=== PATIENT | female | born 1995 | race Caucasian/White ===

== ENCOUNTER 2017-07-27 13:16 | Observation (INO) | payer OTHER ==
[2017-07-27] MEDS ORDERED: ROCURONIUM BROMIDE 50 MG/5 ML VIAL As Ordered (14:46)
[2017-07-27] MEDS ORDERED: fentaNYL 250 MCG/5 ML INJECTION (J3010) As Ordered (14:46)
[2017-07-27] MEDS ORDERED: LIDOCAINE 2% INJ 100 MG/5 ML SDV (FOR ANES.) As Ordered (14:46)
[2017-07-27] MEDS ORDERED: PROPOFOL 200 MG/20 ML VIAL As Ordered (14:46)
[2017-07-27] MEDS ORDERED: MIDAZOLAM INJ 2 MG/2 ML VIAL (J2250) As Ordered (14:46)
[2017-07-27 15:28] LABS: CONTROL LINE UCG INT CTR LINE PRESENT; URINE PREG TEST NEGATIVE (NEGATIVE)
[2017-07-27] MEDS: PHENYLEPHRINE 0.5% NASAL SPRAY 15 ML As Ordered (15:51)
[2017-07-27] MEDS: UNASYN 1.5 GM VIAL As Ordered (15:56)
[2017-07-27] MEDS ORDERED: ESMOLOL INJ 100MG/10ML VIAL As Ordered (16:20)
[2017-07-27] MEDS ORDERED: dexameTHASONE 4 MG/ML 1ML VIAL (J1100) As Ordered ×2 (16:20)
[2017-07-27] MEDS: LIDOCAINE 2% W/ EPINEPHRINE 1.7 ML DENTAL INJ As Ordered ×2 (16:21→17:00)
[2017-07-27] MEDS ORDERED: KETOROLAC 60 MG/2 ML VIAL (J1885) As Ordered (16:34)
[2017-07-27] MEDS ORDERED: ONDANSETRON 4MG/2ML VIAL (J2405) As Ordered (16:34)
[2017-07-27] MEDS ORDERED: GLYCOPYRROLATE INJ 0.2 MG/ML 2 ML VIAL As Ordered (16:34)
[2017-07-27] MEDS ORDERED: METOCLOPRAMIDE INJ 10MG/2ML VIAL (J2765) As Ordered (16:34)
[2017-07-27] MEDS ORDERED: NEOSTIGMINE 10 MG/10 ML VIAL (J2710) As Ordered (16:34)
[2017-07-27] MEDS ORDERED: ONDANSETRON 4MG/2ML VIAL (J2405) IV (17:30)
[2017-07-27] MEDS ORDERED: fentaNYL 100 MCG/2 ML INJECTION (J3010) IV (17:30)
[2017-07-27] MEDS ORDERED: LR 1,000 ML IV (17:30)
[2017-07-27] MEDS ORDERED: PERCOCET 5MG/325MG TAB PO (17:30)
[2017-07-27] MEDS: KETOROLAC 30 MG/ML VIAL (J1885) IV (18:37)
[2017-07-27] MEDS: PERCOCET 5MG/325MG TAB PO (18:40)
== END 2017-07-27 19:56 | disposition home or self-care (01) ==
LOC: M MSPAV 13:16
DX: K12.2 Cellulitis and abscess of mouth (principal); K02.9 Dental caries, unspecified; F17.210 Nicotine dependence, cigarettes, uncomplicated
CPT/HCPCS: D7210